=== PATIENT | female | born 1940 | race Caucasian/White ===

== ENCOUNTER 2018-11-21 10:03 | Day surgery (SDC) | payer OTHER ==
[2018-11-21] MEDS ORDERED: ACET-2047 PO (10:37)
[2018-11-21] MEDS ORDERED: ASPI81TA52 PO (10:38)
[2018-11-21] MEDS ORDERED: AMIO100T4 PO (10:39)
[2018-11-21] MEDS ORDERED: ATOR40TA68 PO (10:39)
[2018-11-21] MEDS ORDERED: BISA10SU55 RC (10:41)
[2018-11-21] MEDS ORDERED: EPOE3000 SC (10:42)
[2018-11-21] MEDS ORDERED: FAMO20TA18 GTB (10:43)
[2018-11-21] MEDS ORDERED: BUME1TAB IV* (10:44)
[2018-11-21] MEDS ORDERED: HYDR-3670 IV* (10:45)
[2018-11-21] MEDS ORDERED: HYDR-4011 PO (10:46)
[2018-11-21] MEDS ORDERED: LANT3I SC (10:47)
[2018-11-21] MEDS ORDERED: HYDR-3980 PO (10:47)
[2018-11-21] MEDS ORDERED: IPRA3AMP29 INHALATION (10:48)
[2018-11-21] MEDS ORDERED: LABE100T7 IV* (10:49)
[2018-11-21] MEDS ORDERED: METO-448 PO (10:51)
[2018-11-21] MEDS ORDERED: METO5TAB65 PO (10:52)
[2018-11-21] MEDS ORDERED: LINA5TAB GTB (10:53)
[2018-11-21] MEDS ORDERED: LEVO75TA65 PO (10:53)
[2018-11-21] MEDS ORDERED: SVL800C GTB (10:55)
[2018-11-21] MEDS ORDERED: MULTI PO (11:00)
[2018-11-21] MEDS ORDERED: NPH,100V SQ (11:01)
[2018-11-21] MEDS ORDERED: INSU100V3 IJ (11:11)
== END 2018-11-21 19:00 | disposition home or self-care (01) ==
LOC: SDS 10:03 → CCL 10:03
PROVIDERS: ATTEND Thoracic Surgery (Cardiothoracic Vascular Surgery)
DX: I12.0 Hypertensive chronic kidney disease with stage 5 chronic kidney disease or end stage renal disease (principal); N18.6 End stage renal disease; Z53.8 Procedure and treatment not carried out for other reasons

== ENCOUNTER 2018-11-27 07:17 | Day surgery (SDC) | payer OTHER ==
[2018-11-26 18:19] VITALS: Ht 165.1 cm; Wt 63.4 kg
[~2018-11-27] VITALS: Ht 165.1 cm; Wt 63.4 kg
[~2018-11-27 07:17] MED LIST: ACET-2047 PO; AMIO100T4 PO; ASPI81TA52 PO; ATOR40TA68 PO; BISA10SU55 RC; BUME1TAB IV*; EPOE3000 SC; FAMO20TA18 GTB; HYDR-3670 IV*; HYDR-3980 PO; HYDR-4011 PO; INSU100V3 IJ; IPRA3AMP29 INHALATION; LABE100T7 IV*; LANT3I SC; LEVO75TA65 PO; LINA5TAB GTB; METO-448 PO; METO5TAB65 PO; MULTI PO; NPH,100V SQ; SVL800C GTB
--- NOTE | 2018-11-27 08:55 | PREAC ---
Date/Time of Note Date/Time of Note DATE: 11/27/18 TIME: 08:53 Anesthesia Eval and Record Evaluation Time Pre-Procedure Interview DATE: 11/27/18 TIME: 08:53 Age 78 Sex female NPO: 8 hrs Preoperative diagnosis ESRD> RSC PERMACATH ONE PORT CLOTTED/MALFUNCTION Planned procedure PERMACATH EXCHANGE Past Medical History Past Medical History: Includes Cardio: HTN, Dyslipidemia, CABG (ONE VESSEL CABG AT [facility]), Arrythmia (HX AFIB), Other (S/P MITRAL VALVE REPLACEMENT AT [facility]. POSTOP COURSE COMPLICATED BY STROKE. MILD AORTIC STENOSIS VENITA 1.7 CM2. 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 WITHDRAWS TO PAIN. ) Renal: CKD, ESRD on dialysis (LAST HD TODAY 11/27/18. ), HD last: (11/27/18), Other (ACCESS RIGHT SUBCLAVIAN PERMACATH ) GI: Other (PEG TUBE, TUBE FEED OFF SINCE MIDNIGHT) Heme: Anemia Surgery & Anesthesia Issues No known issue (NO ISSUES PER REPORT) Meds Anticoagulation: Yes (ASA) Beta Michael within 24 hr: Yes Reported Medications Insulin Regular, Human (Humulin R) 100 Unit/1 Ml Vial, 0 IJ Q6, VIAL SLIDING SCALE 0-120 = 0 UNITS 121-150 = 0 UNITS 151-200 = 2 UNITS 201-250 = 4 UNITS 251-300 = 6 UNITS 301-350 = 8 UNITS 351-400 = 12 UNITS 11/21/18 Insulin NPH Human Isophane (Humulin N) 100 Unit/1 Ml Vial, 35 UNIT SQ Q8, VIAL 11/21/18 Multivitamins* (Theragran*) 1 Tab Tab, 1 TAB PO DAILY, TAB 11/21/18 Sevelamer Hcl* (Renagel*) 800 Mg Tablet, 800 MG GTB WITH MEALS, TAB 11/21/18 Levothyroxine Sodium* (Levoxyl*) 75 Mcg Tablet, 75 MCG PO BEFORE BREAKFAST, #30 TAB 11/21/18 Linagliptin (TRADJENTA) 5 Mg Tablet, 5 MG GTB DAILY, TAB 11/21/18 Metolazone* (Metolazone*) 5 Mg Tablet, 5 MG PO DAILY, TAB 11/21/18 Metoprolol Tartrate* (Lopressor*) 25 Mg Tab, 25 MG PO BID, #60 TAB 11/21/18 Labetalol Hcl* (Labetalol Hcl*) 100 Mg Tablet, 10 MG IV* EVERY 30 MIN PRN for BLOOD PRESSURE SUPPORT, TAB 11/21/18 Ipratropium-Albuterol (Ipratropium-Albuterol) 0.5-3 Mg/3 Ml Ampul.neb, 3 ML INHALATION Q4 PRN for WHEEZING AND SOB, #30 VIAL 11/21/18 Hydrocodone/Acetaminophen ([place] 10-325 Tablet) 1 Each Tablet, 1 EACH PO Q4 PRN for PAIN, TAB 11/21/18 Insulin Glargine* (Lantus*) 100 Unit/Ml Soln, 20 UNIT SC QHS, #1 VIAL 11/21/18 Hydrocodone/Acetaminophen ([place] 5-325 Tablet) 1 Each Tablet, 1 EACH PO Q4 PRN for PAIN, TAB 11/21/18 Hydralazine Hcl* (Hydralazine Hcl*) 10 Mg Tablet, 20 MG IV* EVERY 30 MIN PRN for BLOOD PRESSURE SUPPORT, #120 TAB 11/21/18 Bumetanide* (Bumetanide*) 1 Mg Tablet, 1 MG IV* SUN ELI THOMSON, TAB 11/21/18 Famotidine* (Famotidine*) 20 Mg Tablet, 20 MG GTB BID, #60 TAB 11/21/18 Epoetin annette* (Epogen*) 3,000 Unit/1 Ml Vial, 26250 UNIT SC [place], VIAL 11/21/18 Bisacodyl (Dulcolax) 10 Mg Supp.rect, 10 MG RC DAILY PRN for CONSTIPATION, SUPP.RECT 11/21/18 Atorvastatin* (Atorvastatin*) 40 Mg Tablet, 40 MG PO QHS, #30 TAB 11/21/18 Amiodarone Hcl* (Amiodarone Hcl*) 100 Mg Tablet, 100 MG PO DAILY, #30 TAB 11/21/18 Aspirin (Low Dose Aspirin) 81 Mg Tablet.dr, 81 MG PO DAILY, #30 TAB 11/21/18 Acetaminophen* (Acetaminophen*) 650 Mg Tablet, 650 MG PO Q6H PRN for PAIN AND OR ELEVATED TEMP, #30 TAB 11/21/18 Meds reviewed: Yes Allergies Coded Allergies: Penicillins (Verified Allergy, Unknown, 11/21/18) fenofibrate (Verified Allergy, Unknown, unknown, 11/21/18) metformin (Verified Allergy, Unknown, unknown, 11/21/18) metoclopramide (Verified Allergy, Unknown, unknown, 11/21/18) troglitazone (Verified Allergy, Unknown, unknown, 11/21/18) Uncoded Allergies: ABANDIA (Allergy, Unknown, unknown, 11/09/18) PRILIPIX (Allergy, Unknown, unknown, 11/09/18) Allergies Reviewed: Yes Labs/Studies Labs Reviewed: Reviewed by anesthesiologist test: N/A Studies: ECG, CXR, 2D Echo (EF 55%, NORMAL LV. MILD AORTIC STENOSIS VENITA 1.7 CM2. ) Pre-procedure Exam Airway: Adequate mouth opening (UNABLE TO ASSESS, DOES NOT FOLLOW COMMANDS), Adequate thyromental dist Mallampati: Mallampati I (UNABLE TO ASSESS, PT DOES NOT FOLLOW COMMANDS ) Teeth: Normal (DENTURES ARE OUT PER ) Lung: Normal Heart: Normal ASA Physical Status ASA physical status: 4 Emergency: None Planned Anesthetic General/MAC: MAC Planned Pain Management Parenteral pain med, Local by surgeon Pre-operative Attestations Prior to commencing anesthesia and surgery, the patient was re-evaluated, there was verification of: *The patient's identity *The results of appropriate recent lab work and preoperative vital signs *The above evaluation not changing prior to induction *Anesthetic plan, risk benefits, alternative and complications discussed with patient/family; questions answered; patient/family understands, accepts and wishes to proceed. ANTONELLA ESPINAL November 27, 2018 08:55
[2018-11-27] MEDS ORDERED: LIDOCAINE 1% (MDV) 20 ML INJ ONE (17:32)
[2018-11-27] MEDS ORDERED: HEPARIN 1000 UNITS/ML 10 ML INJ ONE (17:32)
== END 2018-12-12 10:21 | disposition home or self-care (01) ==
LOC: SDS 07:17
PROVIDERS: ATTEND Thoracic Surgery (Cardiothoracic Vascular Surgery)
DX: I12.0 Hypertensive chronic kidney disease with stage 5 chronic kidney disease or end stage renal disease (principal); N18.6 End stage renal disease; Z53.8 Procedure and treatment not carried out for other reasons; I69.354 Hemiplegia and hemiparesis following cerebral infarction affecting left non-dominant side; E11.9 Type 2 diabetes mellitus without complications
CPT/HCPCS: 36558; J1644; 36581